=== PATIENT | female | born 1950 | race Hispanic/Latino ===

== ENCOUNTER 2019-07-11 22:46 | Inpatient (IN) ==
[2019-07-11] MEDS ORDERED: ASPIRIN PO ONE (23:05)
[2019-07-11 23:23] LABS: BASO# 0.02 X1000 (0.0-0.2); BASO% 0.2 % (0.0-0.8); EOS# 0.08 X1000 (0.0-0.7); EOS% 0.9 % (0.0-10.0); HEMATOCRIT 44.1 % (37.0-47.0); HEMOGLOBIN 13.9 g/dL (12.0-16.0); IMM GRAN# 0.02 X1000 (0.0-0.04); IMM GRAN% 0.2 % (0.0-0.5); LYMPH# 4.13 X1000 (1.2-3.4); LYMPH% 44.4 % (20.5-51.1); MCH 25.9 PG (27-31); MCHC 31.5 g/dL (33-37); MCV 82.3 FL (81-99); MONO# 0.85 X1000 (0.11-0.59); MONO% 9.1 % (1.7-9.3); MPV 11.5 FL (7.4-10.4); NEUT% 45.2 % (42.2-75.2); PLT 235 X1000 (130-400); RBC 5.36 XMIL (4.2-5.4); RDW 14.2 % (11.5-14.5)
[2019-07-11] MEDS ORDERED: NITROGLYCERIN TOP ONE (23:23)
--- NOTE | 2019-07-11 23:40 | EKG Report ---
Test Performed on : 07/11/2019 11:12:40 PM Test Reason : CHEST PAIN Blood Pressure : / mmHG Vent. Rate : 115 BPM Atrial Rate : 115 BPM P-R Int : 140 ms QRS Dur : 130 ms QT Int : 358 ms P-R-T Axes : 046 -47 010 degrees QTc Int : 495 ms Sinus tachycardia. with occasional premature ventricular complexes. Right bundle branch block Left anterior fascicular block Bifascicular block Voltage criteria for left ventricular hypertrophy Abnormal ECG When compared with ECG of 11-JUL-2019 23:07, (Unconfirmed) Previous ECG has undetermined rhythm, needs review Unconfirmed Result
[2019-07-11 23:45] LABS: ALBUMIN 4.5 g/dL (3.5-5.0); CALCIUM 8.8 mg/dL (8.8-10.2); POTASSIUM 3.1 mmol/L (3.5-5.1); TOTAL BILIRUBIN 0.8 mg/dL (0.20-1.00); TOTAL PROTEIN 8.1 g/dL (6.3-8.3)
[2019-07-11 23:57] LABS: INR 0.95; PROTIME 13.1 Seconds (11.0-16.0)
[2019-07-12] MEDS ORDERED: APRESOLINE IV ONE ×2 (00:32→02:46)
[2019-07-12] MEDS ORDERED: LABETALOL IV ONE (01:39)
--- NOTE | 2019-07-12 01:49 | PROVIDER DOCUMENTATION ---
This chart was entered by Carmel Fu Scribe, acting as scribe for Paz Marina DO. HPI-Chest Pain - General Chief Complaint: Chest Pain Stated Complaint: CHEST PAINS Time Seen by Provider: 07/11/19 23:05 Source: patient Allergies/Adverse Reactions: Patient Allergies Allergy/AdvReac Type Severity Reaction Status Date / Time Penicillins Allergy ANAPHYLAXIS Verified 12/09/17 17:33 Home Medications: Home Medication List Medication Instructions Recorded Confirmed Last Taken Type NK [No Home Medications] 07/11/19 07/11/19 Unknown History - History of Present Illness-CP Nature of Presenting Problem: pt is a 69 yr old female presenting with 3 day complaint of chest pressure, pain radiates to back, shortness of breath and dizziness. pt hx of HTN, has not been on her medication since relocating from [place]. Location: reports: central Chest Pain Radiation: reports: back Quality of Pain: reports: pressure Severity in ED: moderate Onset/Duration: 3 days ago Timing: still present Context/Activities at Onset: reports: light activity Modifying Factors: improves with: nothing Associated Symptoms: reports: dizziness, nausea. denies: diaphoresis, fatigue, shortness of breath Nitro Today/Relief: no nitro taken today Aspirin Treatment Today: no aspirin today Prior Chest Pain/Cardiac Workup: reports: no prior chest pain, no prior cardiac workup Similar Symptoms Previously?: No Recently Seen Here or By Another Healthcare Provider: No Review of Systems - Adult - REVIEW OF SYSTEMS - ADULT Constitutional: reports: fatique. denies: chills, fever Eyes: denies: blurred vision, double vision Ears, Nose, Mouth & Throat: reports: no symptoms reported Cardiovascular: reports: chest pain. denies: palpitations, syncope Respiratory: reports: shortness of breath. denies: cough Gastrointestinal: reports: nausea. denies: abdominal pain, vomiting Genitourinary: reports: no symptoms reported Musculoskeletal: reports: back pain. denies: neck pain Integumentary: reports: no symptoms reported Neurological: reports: dizziness/vertigo. denies: headache/migraines, numbness, seizure, slurred speech, syncope Psychiatric: reports: no symptoms reported Endocrine: reports: no symptoms reported Hematologic/Lymphatic: reports: no symptoms reported Allergic/Immunologic: reports: no symptoms reported All Other Systems: Reviewed and Negative Past History - Adult - PAST MEDICAL HISTORY-ADULT Review of Records: reports: Old Records Reviewed, Nursing Assessment Review, Medications Reviewed, Social history reviewed & non-contributory. Major Childhood Illnesses: reports: denies history Cardiovascular: reports: HTN Respiratory: reports: denies history Gastrointestinal: reports: denies history Obstetrical/Gynecological: reports: denies history Genitourinary: reports: denies history Musculoskeletal: reports: denies history Neurological: reports: denies history Endocrine/Immune: reports: denies history Other Conditions: reports: denies history - PRIOR SURGERIES/PROCEDURES Surgical/Procedure History: reports: reviewed, not pertinent - IMMUNIZATION STATUS Childhood Immunizations: See Nurse Assessment Flu Vaccine: See Nurse Assessment - FAMILY HISTORY Family History: reviewed, not pertinent - SOCIAL HISTORY Living Situation: family Physical Exam-General - PHYSICAL EXAM-ADULT Initial Vital Signs Reviewed: Yes - CONSTITUTIONAL General Appearance: appears well, alert, no apparent distress - EYES Eyes: PERRL/EOMI - HEAD, EARS, NOSE, MOUTH & THROAT HENMT: normocephalic/atraumatic, moist mucous membranes, normal ENT inspection - NECK Neck: non-tender, full range of motion, supple, normal inspection - RESPIRATORY Respiratory: lungs clear, normal breath sounds - CARDIOVASCULAR Cardiovascular: normal peripheral pulses, regular rate, rhythm, no edema - GASTROINTESTINAL (ABDOMEN) Abdominal Exam: normal bowel sounds, non tender, soft - LYMPHATIC Lymphatic: no adenopathy - MUSCULOSKELETAL Back Exam: normal inspection, no CVA tenderness, no vertebral tenderness Extremity: normal range of motion, non-tender, normal gait, normal inspection - SKIN Integumentary: normal color, normal turgor, warm/dry - NEUROLOGIC Neurologic: grossly normal, no motor/sensory deficits - PSYCHIATRIC Psych/Mental Status: normal mood/affect, normal thought content, normal thought process, oriented x 3 - HEART Score HEART Score: History: Moderately Suspicious HEART Score: ECG: Non-Specific Repolarization Disturbance/LBBB/PM HEART Score: Age: > or = 65 Years HEART Score: Risk Factors for Atherosclerotic Disease: 1 or 2 Risk Factors HEART Score: Troponin: < or = Normal Limit Total HEART Score:: 5 Progress - PLAN OF CARE/RESULTS Progress/Plan/Lab Results: Vital Signs - 8 hr 07/11/19 23:02 07/12/19 00:41 07/12/19 01:05 Temperature 98.1 F 98.1 F Pulse Rate 110 H 105 H 111 H Respiratory Rate 18 18 Blood Pressure 229/120 202/84 190/80 O2 Sat by Pulse Oximetry 96 96 98 Laboratory Results - last 24 hr 07/11/19 07/11/19 07/11/19 23:10 23:10 23:10 WBC 9.30 RBC 5.36 Hgb 13.9 Hct 44.1 MCV 82.3 MCH 25.9 L MCHC 31.5 L RDW Std Deviation 14.2 Plt Count 235 MPV 11.5 H Immature Gran % (Auto) 0.2 Neut % (Auto) 45.2 Lymph % (Auto) 44.4 [place] % (Auto) 9.1 Eos % (Auto) 0.9 Baso % (Auto) 0.2 Immature Gran # (Auto) 0.02 Neut # (Auto) 4.20 Lymph # (Auto) 4.13 H [place] # (Auto) 0.85 H Eos # (Auto) 0.08 Baso # (Auto) 0.02 PT INR PTT (Actin FS) D-Dimer, Quantitative Sodium 141 Potassium 3.1 L Chloride 104 Carbon Dioxide 23 L Anion Gap 14 BUN 14 Creatinine 1.0 H Estimated GFR/1.73 m2 55 BUN/Creatinine Ratio 14 Glucose 114 H Calculated Osmolality 283 Calcium 8.8 Total Bilirubin 0.80 AST 13 ALT 11 Alkaline Phosphatase 125 H Creatine Kinase 65 Troponin T Ard-T-Qeayzkpbapj Pept 119 Total Protein 8.1 Albumin 4.5 Globulin 4.0 Albumin/Globulin Ratio 1.0 07/11/19 07/11/19 23:10 23:10 WBC RBC Hgb Hct MCV MCH MCHC RDW Std Deviation Plt Count MPV Immature Gran % (Auto) Neut % (Auto) Lymph % (Auto) [place] % (Auto) Eos % (Auto) Baso % (Auto) Immature Gran # (Auto) Neut # (Auto) Lymph # (Auto) [place] # (Auto) Eos # (Auto) Baso # (Auto) PT 13.1 INR 0.95 PTT (Actin FS) 33.0 D-Dimer, Quantitative 0.44 Sodium Potassium Chloride Carbon Dioxide Anion Gap BUN Creatinine Estimated GFR/1.73 m2 BUN/Creatinine Ratio Glucose Calculated Osmolality Calcium Total Bilirubin AST ALT Alkaline Phosphatase Creatine Kinase Troponin T < 0.010 Blp-Y-Czkjktcdpsj Pept Total Protein Albumin Globulin Albumin/Globulin Ratio Orders Category Date Time Status Cardiac Monitoring DIRECTED Care 07/11/19 23:05 Active Oxygen Therapy- ED Nursing DIRECTED Care 07/11/19 23:05 Completed Saline Loc NOW Care 07/11/19 23:05 Active CHEST-1 VIEW [RAD] Stat Exams 07/11/19 23:23 Taken CBC WITH ELECTRONIC DIFF [HEME] Stat Lab 07/11/19 23:10 Completed CK PROFILE [SP CHEM] Stat Lab 07/11/19 23:10 Completed COMPREHENSIVE METABOLIC PANEL [CHEM] Stat Lab 07/11/19 23:10 Completed D-DIMER [COAG] Stat Lab 07/11/19 23:10 Completed PRO B-NATRIURETIC PEPTIDE Stat Lab 07/11/19 23:10 Completed PROTIME WITH INR [COAG] Stat Lab 07/11/19 23:10 Completed PTT [COAG] Stat Lab 07/11/19 23:10 Completed TROPONIN T Stat Lab 07/11/19 23:10 Completed TROPONIN T Stat Lab 07/12/19 01:25 Received Aspirin Med 07/11/19 23:05 Discontinued 325 mg PO NOW ONE Hydralazine [Apresoline] Med 07/12/19 00:32 Discontinued 10 mg IV NOW ONE Labetalol Med 07/12/19 01:39 Discontinued 20 mg IV NOW ONE Nitroglycerin Med 07/11/19 23:23 Discontinued 1 inch TOP NOW ONE CP/SOB/Palp >45 yrs of Age Stat Oth 07/11/19 23:05 Ordered EKG [EKG] Stat Ther 07/11/19 23:05 Draft Considerations include but not limited to: AMI, ACS, dissection. Her trop is wnl. 12 lead is shows bifasciular block. Her BP briefly improved into the 170s with Hydralazine and NTG paste. It then returned to 225 systolic. She was then given Labetalol. No immediate signs of end organ damage. She was admitted for hypertensive urgency to the hospitalist service. Result Diagrams: 07/11/19 23:10 07/11/19 23:10 - EKG 1 Time of EKG reading by physician:: 23:12 EKG Read and Signed by:: Paz Marina EKG Interpretation (*Must complete 3 of following elements*): Abnormal (bifasiculr block) Rate: 115 Rhythm: sinus tach with occ PVCs QRS: RBB, LVH (voltage criteria met), PVC's (occ) Departure - Departure Date of Disposition Decision: 07/12/19 Time of Disposition Decision: 01:48 DIAGNOSIS: Hypertensive urgency Disposition: ADMITTED INPATIENT 09 Certified Medical Emergency: Emergent Condition: Fair Additional Instructions: ED Follow Up Instructions: You have been treated by a care provider in the Emergency Department. These instructions are being provided to you so you can have an understanding of how to care for yourself upon discharge. Upon discharge from the Emergency Department, you are responsible for making arrangements for follow-up care by a physician of your choice. Take all prescribed medications as directed. Return to the Emergency Department immediately for any new or worsening symptoms. You may call the Physician Referral phone number at [phone] to obtain a list of Physicians who are taking new patients. Referrals and Follow-Ups: None,PCP [Primary Care Provider] - Work Excuses: Return to School/Parent Work - Critical Care Note This patient required my direct & personal management of CC.: No Attestation - Physician/ DOLLY Attestation The physician spent face to face time with patient:: Yes Advanced Practice Provider documentation review:: Supervising physician onsite and consulted in the evaluation and care of this patient. The physician did have a face to face encounter with the patient. This chart was documented by the indicated scribe, (Carmel Fu, Rae) and accurately reflects the services I performed and decisions made by me, Paz Marina DO, as attested by the provider's signature.
[2019-07-12] MEDS ORDERED: APRESOLINE IV PRN (01:58)
[2019-07-12] MEDS ORDERED: PRINIVIL PO ONE (01:59)
[2019-07-12] MEDS ORDERED: LOPRESSOR PO ONE (07:45)
--- NOTE | 2019-07-12 08:09 | Diag Imaging Result Doc PS360 ---
EXAM: CHEST-1 VIEW - 07/11/2019 HISTORY: CP TECHNIQUE: Portable chest one view COMPARISON: 12/09/2017 FINDINGS: Heart size appears within normal limits. There is mild tortuosity of the thoracic aorta. There is mild prominence of basilar interstitial markings similar to prior and suggestive of scarring/fibrosis. There is no acute consolidation, pleural effusion, or pneumothorax identified. IMPRESSION: Mild basilar interstitial scarring/fibrosis. No acute changes. Electronically signed by Javier Almeida 07/12/2019 8:07 AM
--- NOTE | 2019-07-12 08:24 | EKG Report ---
Test Performed on : 07/12/2019 08:08:26 AM Test Reason : CP Blood Pressure : / mmHG Vent. Rate : 099 BPM Atrial Rate : 099 BPM P-R Int : 136 ms QRS Dur : 132 ms QT Int : 410 ms P-R-T Axes : 039 -46 011 degrees QTc Int : 526 ms Normal sinus rhythm. Right bundle branch block Left anterior fascicular block Bifascicular block Voltage criteria for left ventricular hypertrophy Cannot rule out Septal infarct , age undetermined Abnormal ECG When compared with ECG of 11-JUL-2019 23:12, (Unconfirmed) premature ventricular complexes. are no longer present Nonspecific T wave abnormality now evident in Anterior leads Confirmed by Scar Vegas MD ([id number]) on 07/21/2019 7:34:12 AM
[2019-07-12 09:30] LABS: CHOLESTEROL 203 mg/dL (0-200); HDL 46 mg/dL (45-65); LDL 111 mg/dL; TRIGLYCERIDES 228 mg/dL (35-135); VLDL 46 mg/dL
[2019-07-12 09:32] LABS: HEMOGLOBIN A1C 5.4 % (4.8-6.0)
[2019-07-12 12:10] VITALS: BP 136/66
[2019-07-12] MEDS ORDERED: KLOR-CON PO ONE (12:17)
--- NOTE | 2019-07-12 13:47 | HISTORY AND PHYSICAL ---
The patient presented to the hospital with chest pain. She has a known history of high blood pressure but taking medications for quite some time. She apparently moved to the [facility] approximately a year ago and has not been on medicines since. Blood pressures in the ER were elevated at 220/120. We are going to admit her to the hospital, rule out VT, adjust blood pressure medications, and we will follow. cc: Tremayne Arrington MD MTDD
--- NOTE | 2019-07-12 14:11 | ECHO REPORT ---
ORDER DATE: 07/12/2019 INTERPRETING PHYSICIAN: Dr. Jake Hart. ECHOCARDIOGRAPHIC MEASUREMENTS: 1. Interventricular septum 1.0. 2. Left ventricular posterior wall 1.0. 3. Diastolic diameter 5.2. 4. Left atrium 3.2. 5. Aorta 3.5. SUMMARY OF THE 2-DIMENSIONAL IMAGIN. Aortic valve leaflets were trileaflet. 2. Pulmonic valve was normal. 3. Mitral valve was normal. 4. Aortic valve leaflets were trileaflet. 5. Normal left ventricular cavity size. Estimated ejection fraction of 60% to 65%. There is trace mitral regurgitation. 6. Mild tricuspid regurgitation. Peak velocity across the tricuspid valve was 2.4 m/sec. 7. Peak velocity across the aortic valve less than 2 m/sec. There is no aortic stenosis or regurgitation. 8. There is no pericardial effusion or obvious intracardiac mass or thrombus seen. 9. Technically suboptimal study. Poor acoustic window. cc: Jake Hart MD
--- NOTE | 2019-07-13 02:27 | DISCHARGE SUMMARY ---
ADMISSION DATE: 07/11/2019 DISCHARGE DATE: 07/12/2019 DISCHARGE DIAGNOSIS: 1. Hypertension urgency, much better currently with blood pressures in the 120s to 130s. 2. Chest pain, resolved. CONSULTATIONS: None. PROCEDURES: None. BRIEF HOSPITAL COURSE: The patient is a 69-year-old female who unfortunately has been off of her blood pressure medications for quite some time. Her blood pressure initially in the ER was 229/120. She was given labetalol IV per ER. We added lisinopril 20 mg. Her blood pressure dropped to 120s and 130 systolic. She notes that her chest pain is better. She states she is feeling better. She was noted to have a low potassium at 3.1 which was easily replaced. DISPOSITION: Patient will be discharged home. Discussed her that she needs to follow up with clinic of her choice. Discussed her that [facility] in [place] would be a good place to call as they do speak [place]. Prescription was written for lisinopril 20 mg daily. Greater than 30 minutes was spent in total care. cc: Tremayne Arrington MD MTDD
--- NOTE | 2019-07-15 13:53 | HISTORY AND PHYSICAL ---
CHIEF COMPLAINT: Chest pain. HISTORY OF PRESENT ILLNESS: The patient is a 69-year-old female who presented with a 3-day history of chest pressure, pain that radiated through to her back, some shortness of breath, dizziness. She has a known history of hypertension. She has not actually been on her medications since she arrived from [place]. ALLERGIES: Penicillin causing anaphylaxis. MEDICATIONS: She is supposed to be on blood pressure medications but the family notes that she has not been on them in several months. REVIEW OF SYSTEMS: Through translation, she has chest pain, no radiation to her left arm or jaw. Does have some shortness of breath, pain through to her back. Feels chest heaviness and difficulty breathing. Denies any fevers, chills, cough, congestion. Denies any GI or issues. PAST MEDICAL HISTORY: Hypertension. No previous history of coronary disease. PAST SURGICAL HISTORY: No past surgical history. FAMILY HISTORY: Positive for hypertension. SOCIAL HISTORY: Patient does not smoke or drink. She has recently relocated here from [facility]. PHYSICAL EXAMINATION: VITAL SIGNS: Reviewed. Temperature 98 degrees, pulse 110, respiratory rate 18, blood pressure 229/120, saturating 96% on room air. GENERAL: Patient is awake, alert, very pleasant. No current distress. HEENT: Normocephalic. NECK: Supple. CARDIOVASCULAR: Regular rate. No murmurs. CHEST: Clear, nonlabored. ABDOMEN: Soft, nondistended, nontender. EXTREMITIES: Moves all extremities. NEUROLOGIC: No focal changes. SKIN: Warm and dry. No rashes. ASSESSMENT: 1. Malignant hypertension. 2. Chest pain, likely secondary to her hypertension. 3. Medical noncompliance as she has not been on her medications. 4. Hypokalemia. 5. Hypertension. PLAN: We are going to admit patient to the hospital, start her on lisinopril. She has been given several medications in the ER for her blood pressure and we will follow. cc: Tremayne Arrington MD
== END 2019-07-12 14:31 | disposition home or self-care (01) ==
LOC: P.ED 22:46 → P.MEDSURG 07-12 02:43
PROVIDERS: ATTEND Family Medicine